=== PATIENT | female | born 1985 | race Caucasian/White ===

== ENCOUNTER 2023-10-29 15:28 | Outpatient (CLI) | payer OTHER | END 2023-10-29 16:44 | disposition home or self-care (01) | LOC: NST 15:28 | PROVIDERS: ATTEND Obstetrics & Gynecology | DX: Z34.83 Encounter for supervision of other normal pregnancy, third trimester (principal) ==

== ENCOUNTER 2023-12-26 15:00 | Inpatient (IN) | payer OTHER ==
[~2023-12-26] VITALS: Ht 152.4 cm; Wt 78.9 kg
[2024-01-05 03:11] VITALS: BP 135/80
[2024-01-05] MEDS ORDERED: PRENATABS RX T1 EACH PO (04:00)
[2024-01-05] MEDS ORDERED: RINGERS SOLUTION,LACTATED 1,000 ML IV SCH (04:00)
[2024-01-05] MEDS ORDERED: MORPHINE SULFATE 4 MG/ML VIAL IV PRN (04:00)
[2024-01-05] MEDS ORDERED: CHILDREN'S ASPI81 MG PO (04:01)
[2024-01-05 04:08] VITALS: BP 135/80
[2024-01-05] MEDS ORDERED: MORPHINE SULFATE 4 MG/ML CARTRIDGE IV PRN (04:45)
[2024-01-05 04:53] LABS: INR 0.99; PARTIAL THROMBOPLASTIN TIME 25.3 SECONDS (22.0-34.0); PROTHROMBIN TIME 10.8 SECONDS (9.0-11.5)
[2024-01-05 04:58] LABS: ALBUMIN 3.1 gm/dL (3.4-5.0); BILIRUBIN TOTAL 0.47 mg/dL (0.3-1.2); CALCIUM 9.2 mg/dL (8.5-10.1); CREATININE SERUM 0.43 mg/dL (0.55-1.02); GFR 163.47; GLOBULINA 3.6 G/DL (2.4-3.5); POTASSIUM 4.31 mEq/L (3.5-5.1); TOTAL PROTEIN 6.7 gm/dL (6.4-8.2)
[2024-01-05 06:23] LABS: HEMATOCRIT 35.1 % (36.0-45.00); HEMOGLOBIN 11.8 g/dL (12.0-15.00); MEAN CELL VOLUME 97.2 fL (80.00-100.00); MEAN CORPUSCULAR HEMOGLOBIN 32.7 pg (27.00-32.0); MEAN CORPUSCULAR HGB CONC 33.6 g/dl (32.0-36.0); PLATELET COUNT 242 K/uL (150-450); RED BLOOD COUNT 3.61 M/uL (4.00-6.00); RED CELL DISTRIBUTION WIDTH 14.3 % (11.5-14.5)
[2024-01-05 07:34] VITALS: BP 112/72; O2SAT 99
[2024-01-05] MEDS ORDERED: OXYTOCIN 20 UNITS/500ML RL PIGGYBAG IV SCH (09:15)
[2024-01-05 11:01] VITALS: BP 122/78; O2SAT 99
[2024-01-05] MEDS ORDERED: CITRIC ACID/SODIUM CITRATE 30 ML BLIST.PACK PO ONE (13:30)
[2024-01-05] MEDS ORDERED: CEFOXITIN SODIUM 2,000 MG VIAL IV SCH (13:30)
[2024-01-05] MEDS ORDERED: ERYTHROMYCIN BASE OPHT 1GM EACH TUBE OP ONE (13:45)
[2024-01-05] MEDS ORDERED: OXYTOCIN 10 UNITS/ML VIAL IV ONE (13:45)
[2024-01-05] MEDS ORDERED: PROMETHAZINE HCL 25 MG/ML AMPUL IM PRN (15:15)
[2024-01-05] MEDS ORDERED: OXYTOCIN 20 UNITS/1000ML RL PIGGYBAG IV ONE (15:15)
[2024-01-05] MEDS ORDERED: KETOROLAC TROMETHAMINE 30 MG VIAL IM ONE (15:15)
[2024-01-05] MEDS ORDERED: MEPERIDINE HCL 25 MG/ML AMPUL IM PRN (15:15)
[2024-01-05] MEDS ORDERED: MEPERIDINE HCL/PF 25 MG,MEPERIDINE HCL/PF 50 MG IM PRN (15:30)
[2024-01-05] MEDS ORDERED: CEFAZOLIN SODIUM 1,000 MG VIAL IV SCH (17:00)
[2024-01-05] MEDS ORDERED: SIMETHICONE 125 MG CAPSULE PO SCH (17:00)
[2024-01-05 17:15] VITALS: BP 105/71
[2024-01-05] MEDS ORDERED: KETOROLAC TROMETHAMINE 10 MG TABLET PO SCH (18:00)
[2024-01-05 21:01] LABS: HEMATOCRIT 31.5 % (36.0-45.00); HEMOGLOBIN 10.6 g/dL (12.0-15.00); MEAN CELL VOLUME 96.2 fL (80.00-100.00); MEAN CORPUSCULAR HEMOGLOBIN 32.3 pg (27.00-32.0); MEAN CORPUSCULAR HGB CONC 33.6 g/dl (32.0-36.0); PLATELET COUNT 210 K/uL (150-450); RED BLOOD COUNT 3.27 M/uL (4.00-6.00); RED CELL DISTRIBUTION WIDTH 14.5 % (11.5-14.5)
[2024-01-06 01:00] VITALS: BP 100/69
[2024-01-06 06:17] LABS: HEMATOCRIT 27.8 % (36.0-45.00); HEMOGLOBIN 9.5 g/dL (12.0-15.00); MEAN CELL VOLUME 95.5 fL (80.00-100.00); MEAN CORPUSCULAR HEMOGLOBIN 32.6 pg (27.00-32.0); MEAN CORPUSCULAR HGB CONC 34.1 g/dl (32.0-36.0); PLATELET COUNT 193 K/uL (150-450); RED BLOOD COUNT 2.92 M/uL (4.00-6.00); RED CELL DISTRIBUTION WIDTH 14.3 % (11.5-14.5)
[2024-01-06 09:00] VITALS: BP 109/73
[2024-01-06] MEDS ORDERED: OxyCODONE HCL/APAP UD (PERCOCET) PO PRN (09:45)
[2024-01-06 16:00] VITALS: BP 131/81
[2024-01-07] VITALS: BP 116/76
[2024-01-07 07:43] VITALS: BP 118/66
[2024-01-07 18:35] VITALS: BP 109/70
[2024-01-08 00:48] VITALS: BP 107/72
[2024-01-08] MEDS ORDERED: OXYC1TAB9 PO (08:11)
[2024-01-08] MEDS ORDERED: KETO10TA2 PO (08:11)
[2024-01-08 08:54] VITALS: BP 122/78
== END 2024-01-08 11:57 | disposition home or self-care (01) | DRG 788 ==
LOC: LDR 01-05 03:41 → OB/GYN 01-05 03:41
PROVIDERS: Obstetrics & Gynecology Maternal & Fetal Medicine; ADMIT Obstetrics & Gynecology; ATTEND Obstetrics & Gynecology
PROC: 4A1HXCZ Monitoring of Products of Conception, Cardiac Rate, External Approach (ICD-10-PCS; 2024-01-05)
PROC: 10D00Z1 Extraction of Products of Conception, Low, Open Approach (ICD-10-PCS; principal; 2024-01-05 13:00)
DX: O33.8 Maternal care for disproportion of other origin (principal); Z3A.40 40 weeks gestation of pregnancy; Z37.0 Single live birth; Z20.822 Contact with and (suspected) exposure to COVID-19

== ENCOUNTER 2024-01-03 10:27 | Outpatient (CLI) | payer OTHER | END 2024-01-03 12:06 | disposition home or self-care (01) | LOC: NST 10:27 | PROVIDERS: ATTEND Obstetrics & Gynecology | DX: Z34.83 Encounter for supervision of other normal pregnancy, third trimester (principal) ==